=== PATIENT | female | born 1990 ===

== ENCOUNTER 2018-06-04 14:25 | Emergency (ER) | payer SELFPAY ==
[~2018-06-04 14:25] MED LIST: ISOVUE-370 76%-LOCM 1 ML ONE
[2018-06-04 15:02] LABS: #Lymphocytes 0.4 thou/uL (1.20-3.40); #Monocytes 0.6 thou/uL (0.11-0.59); #Neutrophils 8.3 thou/uL (1.40-6.50); %Basophils 0.3 % (0.0-1.0); %Eosinophils 0.1 % (0.0-10.0); %Lymphocytes 3.9 % (21.0-51.0); %Monocytes 6.1 % (0.0-10.0); %Neutrophils 89.5 % (42.0-75.0); Hemoglobin 9.8 g/dL (12.0-16.0); Mean Corpuscular HGB CONC 33.1 g/dL (32.0-36.0); Mean Corpuscular Volume 78.6 fL (78.0-98.0); Mean Platelet Volume 8.3 fL (7.4-10.4); Platelet Count 273 thou/uL (130-400); RBC Distribution Width 16.8 % (11.5-14.5); Red Blood Cell (RBC) Count 3.77 mill/uL (4.20-5.40); White Blood Cell (WBC) Count 9.3 thou/uL (4.8-10.8)
[2018-06-04 15:09] LABS: Bilirubin Negative (Negative); Blood, Urine Moderate (Negative); Clarity CLEAR (Clear); Glucose, Urine (Dipstick) Negative (Negative); Leukocyte Large (Negative); Nitrite Negative (Negative); Protein, Urine (Dipstick) Trace mg/dL (Neg-Trace); Specific Gravity, Urine 1.019 (1.002-1.036)
[2018-06-04 15:10] LABS: Bacteria/HPF 1+ HPF (None Seen); Hyaline Casts/LPF 4-6 HYALINE CAST LPF (0-3 Hyaline); Pathc Cast-AUWi Flag 0.14 (0-2.49); Squamous Epithelial None Seen HPF (0-3); WBC/HPF 21-50 HPF (0-3)
[2018-06-04 15:12] LABS: Pregnancy Test - Urine (BHCG) Negative (Negative)
[2018-06-04 15:13] LABS: Pregu Control Background? CLEAR/WHITE (CLR/WHITE); Pregu Control Bar Appear? YES (CONTROL BAR); Specific Gravity 1.019 (1.002-1.036)
[2018-06-04 15:22] LABS: ALT (SGPT) 11 U/L (8-55); AST (SGOT) 14 U/L (5-34); Albumin 4.4 g/dL (3.5-5.0); Alkaline Phosphatase 75 U/L (40-150); Anion Gap 14 mmol/L (10-20); BUN (Urea Nitrogen) 9 mg/dL (7.0-18.7); Bilirubin, Total 0.9 mg/dL (0.2-1.2); Calc. Creatinine Clearance 0 mL/min (70-130); Calcium 9.3 mg/dL (7.8-10.44); Carbon Dioxide 22 mmol/L (22-29); Chloride 103 mmol/L (98-107); Estimated GFR-MDRD 82; Globulin 2.9 g/dL (2.4-3.5); Glucose 101 mg/dL (70-105); Lipase 13 U/L (8-78); Potassium 3.6 mmol/L (3.5-5.1); Protein, Total 7.3 g/dL (6.0-8.3); Sodium 135 mmol/L (136-145)
[2018-06-04] MEDS ORDERED: Acetaminophen 500 MG TAB ONE (15:25)
[2018-06-04] MEDS ORDERED: cefTRIAXone\\ROCEPHIN 1 GM in Sodium Chloride 0.9% 100 ML IVPB SCH (15:30)
--- NOTE | 2018-06-04 16:52 | CT ---
CT ABDOMEN AND PELVIS: HISTORY: Right lower quadrant pain. Dizziness. Nausea. Discomfort. TECHNIQUE: Contrast enhanced CT images of the abdomen and pelvis obtained. Unfortunately, oral contrast was not given. FINDINGS: The lung bases are unremarkable. The liver and spleen are unremarkable. There appears to be a small hiatal hernia. The pancreas is unremarkable. The adrenal glands and kidneys are unremarkable. No evidence of periaortic lymphadenopathy is seen. The uterus is somewhat heterogeneous. There appears to be an area of heterogeneous enhancement along the anterior uterine myometrium. This correlates with the patient's history of a . No definite evidence of small bowel dilatation is seen. A normal appendix is visualized. No significant evidence of colonic abnormalities seen. IMPRESSION: Pelvic surgical changes seen. No acute intraabdominal or pelvic abnormalities seen. POS: [id number]
== END 2018-06-04 17:24 | disposition home or self-care (01) ==
LOC: ERS 14:25
DX: N12 Tubulo-interstitial nephritis, not specified as acute or chronic (principal); R51 Headache
CPT/HCPCS: 36415; 74177; 80053; 81003; 81015; 81025; 83690; 85025; 96365; J0696; J7050